=== PATIENT | female | born 1980 | race Caucasian/White ===

== ENCOUNTER 2019-08-07 10:11 | Emergency (ER) | payer SELFPAY ==
[~2019-08-07] VITALS: Ht 157.5 cm; Wt 63.5 kg
--- NOTE | 2019-08-07 10:20 | NUR ---
Patient arrived at unit ambulatory. with c/o back and chest rash x 4 months, no sob, itching and pain r leg pain. will continue to monitor accordingly
[2019-08-07 10:43] VITALS: BP 112/86
--- NOTE | 2019-08-07 11:20 | NUR ---
Patient given written and verbal discharge instructions. Patient verbalizes understanding of instructions. Patient is ambulatory with steady gait. Refuses offer of [facility] placement. Patient given list of available shelters in surrounding area.
--- NOTE | 2019-08-07 12:25 | NUR ---
Social work consult requested by ER. Pt no longer in ER. SW unable to conduct social service assessment.
== END 2019-08-07 11:21 | disposition home or self-care (01) ==
LOC: ER 10:17
DX: R21 Rash and other nonspecific skin eruption (principal); F19.10 Other psychoactive substance abuse, uncomplicated; F12.10 Cannabis abuse, uncomplicated

== ENCOUNTER 2019-08-22 10:32 | Emergency (ER) | payer SELFPAY ==
[~2019-08-22] VITALS: Ht 157.5 cm; Wt 63.5 kg
[2019-08-22] MEDS ORDERED: ONDANSETRON 4 MG TAB.RAPDIS ONE (10:59)
[2019-08-22] MEDS ORDERED: ONDANSETRON 4 MG TAB.RAPDIS PO ONE (11:00)
--- NOTE | 2019-08-22 11:00 | NUR ---
patient came in to the ER c/o cough and vomiting. Breathing evenly and unlabored. connected to the monitor and pulse ox. kept comfortable, will continue to monitor accordingly.
[2019-08-22 11:55] VITALS: BP 115/66
--- NOTE | 2019-08-22 11:55 | NUR ---
Patient discharged to home in stable condition. Written and verbal after care instructions given. Patient verbalizes understanding of instruction.
== END 2019-08-22 11:55 | disposition home or self-care (01) ==
LOC: ER 10:32
DX: B34.9 Viral infection, unspecified (principal); F17.200 Nicotine dependence, unspecified, uncomplicated; F12.10 Cannabis abuse, uncomplicated; Z59.0 Homelessness; Z88.2 Allergy status to sulfonamides
CPT/HCPCS: 71045; 87804 ×2; 99284; Q0162

== ENCOUNTER 2019-09-09 23:36 | Emergency (ER) | payer SELFPAY ==
[~2019-09-09] VITALS: Ht 157.5 cm; Wt 63.5 kg
--- NOTE | 2019-09-09 23:56 | NUR ---
NICK NOTIFIED. INCIDENT REPORT #[id number].
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
--- NOTE | 2019-09-10 00:30 | NUR ---
PATIENT REFUSING TO FILE POLICE REPORT AT THIS TIME. ER MD AWARE.
[2019-09-10] MEDS ORDERED: ACETAMINOPHEN ES 500 MG TABLET ONE (01:16)
[2019-09-10] MEDS ORDERED: IBUPROFEN 600 MG TABLET PO ONE (01:19)
--- NOTE | 2019-09-10 01:27 | NUR ---
Verónica correa in [facility] - 09/10/19 at 0128 by DANIELLE Patient discharged to home in stable condition. Written and verbal after care instructions given. Patient verbalizes understanding of instruction.
[2019-09-10 01:28] VITALS: BP 117/67
--- NOTE | 2019-09-10 01:28 | NUR ---
Patient given written and verbal discharge instructions. Patient verbalizes understanding of instructions. Patient is ambulatory with steady gait. Refuses offer of [facility] placement. Patient given list of available shelters in surrounding area.
[2019-09-10] MEDS ORDERED: ACETAMINOPHEN 325 MG TABLET PO ONE (01:30)
== END 2019-09-10 01:29 | disposition home or self-care (01) ==
LOC: ER 23:37
DX: S00.83XA Contusion of other part of head, initial encounter (principal); F10.129 Alcohol abuse with intoxication, unspecified; R56.9 Unspecified convulsions; F17.200 Nicotine dependence, unspecified, uncomplicated; F12.10 Cannabis abuse, uncomplicated; Y90.9 Presence of alcohol in blood, level not specified; Z88.2 Allergy status to sulfonamides; Y04.8XXA Assault by other bodily force, initial encounter; Y93.89 Activity, other specified; Y92.89 Other specified places as the place of occurrence of the external cause; Y99.8 Other external cause status
CPT/HCPCS: 70450-TC; 70486-TC

== ENCOUNTER 2020-02-08 18:11 | Emergency (ER) | payer SELFPAY ==
[~2020-02-08] VITALS: Ht 157.5 cm; Wt 61.2 kg
[2020-02-08 18:18] VITALS: BP 123/65
--- NOTE | 2020-02-08 18:30 | NUR ---
SEEN AND EXAMINED BY .
[2020-02-08] MEDS ORDERED: LIDOCAINE /MPF 1% VIAL 5 ML VIAL ONE (18:32)
[2020-02-08] MEDS: LIDOCAINE 1% INJ 50 ML MDV IJ ONE (18:32)
--- NOTE | 2020-02-08 19:00 | NUR ---
SUTURING DONE BY .
--- NOTE | 2020-02-08 19:09 | NUR ---
Patient given written and verbal discharge instructions. Patient verbalizes understanding of instructions. Patient is ambulatory with steady gait. Refuses offer of assisted placement. Patient given list of available shelters in surrounding area.
== END 2020-02-08 19:11 | disposition home or self-care (01) ==
LOC: ER 18:11
DX: S01.511A Laceration without foreign body of lip, initial encounter (principal); R56.9 Unspecified convulsions; Z88.2 Allergy status to sulfonamides; Z59.0 Homelessness; W26.8XXA Contact with other sharp object(s), not elsewhere classified, initial encounter; Y93.89 Activity, other specified; Y92.89 Other specified places as the place of occurrence of the external cause; Y99.8 Other external cause status
CPT/HCPCS: 12013; 99282; J3490

== ENCOUNTER 2020-04-02 16:46 | Emergency (ER) | payer SELFPAY ==
[~2020-04-02] VITALS: Ht 157.5 cm; Wt 61.2 kg
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
--- NOTE | 2020-04-02 16:57 | NUR ---
DR WILLIAM AT BEDSIDE FOR EVAL.
--- NOTE | 2020-04-02 17:00 | NUR ---
MACHINE FORMER AT BEDSIDE FOR BLOOD DRAW.
[2020-04-02 17:12] LABS: BASOPHILS # (AUTO) 0.1 /CMM (0.0-0.2); EOSINOPHILS % (AUTO) 2.7 % (0.0-6.0); HEMATOCRIT 38 % (33-45); HEMOGLOBIN 12.8 g/dL (11.5-14.8); LYMPHOCYTES # (AUTO) 2.6 /CMM (0.8-4.8); LYMPHOCYTES % (AUTO) 38.1 % (20.0-44.0); MEAN CORPUSCULAR HGB CONC 33 g/dl (31.0-36.0); MEAN CORPUSCULAR VOLUME 90 fL (82-100); MONOCYTES # (AUTO) 0.6 /CMM (0.1-1.30); MONOCYTES % (AUTO) 8.3 % (2.0-12.0); NEUTROPHILS # (AUTO) 3.4 /CMM (1.8-8.9); NEUTROPHILS % (AUTO) 49.9 % (43.0-81.0); PLATELET COUNT (AUTO) 307 /CMM (150-450); RED BLOOD CELL COUNT(AUTO) 4.27 MIL/uL (4.0-5.2); WHITE BLOOD COUNT (AUTO) 6.8 K/uL (4.3-11.0)
[2020-04-02 17:14] LABS: APPEARANCE,URINE Clear (CLEAR); BILIRUBIN,URINE Negative (NEGATIVE); BLOOD, URINE Moderate Ery/uL (NEGATIVE); COLOR,URINE Yellow (YELLOW); KETONES,URINE Trace (NEGATIVE); LEUKOCYTE ESTERASE ,URINE Negative (NEGATIVE); NITRITE, URINE Negative (NEGATIVE); PROTEIN,URINE Negative (NEGATIVE); UGLUCOSE Negative (NEGATIVE)
[2020-04-02] MEDS ORDERED: IBUPROFEN 600 MG TABLET PO ONE (17:24)
[2020-04-02 17:29] LABS: CALCIUM, SERUM 8.5 mg/dL (8.5-10.1); CARBON DIOXIDE 25 mmol/L (21-32); CHLORIDE 107 mmol/L (98-107); CREATININE 0.7 mg/dL (0.6-1.3); GLUCOSE 87 mg/dL (74-106); POTASSIUM 3.3 mmol/L (3.5-5.1); SODIUM SERUM 142 mmol/L (136-145); UREA NITROGEN, BLOOD 8 mg/dL (7-18)
[2020-04-02 17:32] LABS: BACTERIA,URINE Moderate /HPF (None Seen); SQUAMOUS EPITHELIAL CELL,UR Many /HPF (None Seen)
[2020-04-02 17:33] LABS: WBC,URINE 0-2 /HPF (0-3)
[2020-04-02] MEDS: IBUPROFEN 600 MG TABLET PO ONE (17:34)
[2020-04-02 17:35] LABS: ALANINE AMINOTRANSFERASE 68 U/L (12-78); ALBUMIN 3.3 g/dL (3.4-5.0); ALCOHOL, BLOOD < 3 mg/dL (0-0); ALKALINE PHOSPHATASE 59 U/L (46-116); ASPARTATE AMINOTRANSFERASE 32 U/L (15-37); BILIRUBIN,DIRECT 0.1 mg/dL (0.0-0.2); BILIRUBIN,TOTAL 0.2 mg/dL (0.2-1.0); TOTAL PROTEIN, SERUM 7.2 g/dL (6.4-8.2)
[2020-04-02 17:38] LABS: ACETAMINOPHEN 0 ug/ml (10-30); SALICYLATE 2.5 mg/dL (2.8-20.0)
[2020-04-02] MEDS ORDERED: POTASSIUM CHLORIDE 20 MEQ TAB.PRT.SR PO ONE (19:04)
[2020-04-02] MEDS: POTASSIUM CHLORIDE 20 MEQ TAB.PRT.SR PO ONE (19:06)
--- NOTE | 2020-04-02 19:49 | NUR ---
PT ASLEEP, NO ACUTE DISTRESS NOTED, RESP EVEN AND UNLABORED. CALL LIG WITHIN REACH. 1:1 SITTER REMAINS AT BEDSIDE FOR PT SAFETY.
--- NOTE | 2020-04-02 22:35 | NUR ---
PT AWAKE, AMBULATED TO THE RESTROOM, NO ACUTE DISTRESS NOTED, RESP EVEN AND UNLABORED. PT DENIES PAIN OR DISCOMFORT AT THIS TIME. 1:1 SITTER AT BEDSIDE.
--- NOTE | 2020-04-03 00:49 | NUR ---
PT RESTING IN BED QUIETLY, EYES CLOSED, EASILY AROUSABLE. NO ACUTE DISTRESS NOTED, RESP EVEN AND UNLABORED. CALL LIGHT WITHIN REACH. WILL CONTINUE TO MONITOR PT CLOSELY. 1:1 SITTER REMAINS AT BEDSIDE.
--- NOTE | 2020-04-03 04:32 | NUR ---
CALLED [facility] FOR EVALUATION
--- NOTE | 2020-04-03 07:29 | NUR ---
PT RESTING COMFORTABLY IN BED. VITAL SIGNS STABLE. SITTER AT BEDSIDE.
--- NOTE | 2020-04-03 09:22 | NUR ---
CALLED PSYCH CLINICIAN MELY, LEFT A VOICEMAIL.
--- NOTE | 2020-04-03 09:42 | NUR ---
PATIENT IN BED, ASLEEP, EASILY AROUSABLE BY VOICE. HOOKED TO MONITOR, VSS. SITTER AT BEDSIDE FOR SAFETY. WILL CONTINUE TO MONITOR ACCORDINGLY
--- NOTE | 2020-04-03 10:42 | NUR ---
BREAKFAST TRAY PROVIDED, TOLERATING PO WELL
--- NOTE | 2020-04-03 14:19 | NUR ---
LUNCH TRAY PROVIDED, TOLERATING PO WELL
--- NOTE | 2020-04-03 15:44 | NUR ---
Galley Boy met with the patient and Izzy will evaluate the patient for next steps. Galley Boy to remain available for additional needs.
--- NOTE | 2020-04-03 16:54 | NUR ---
PATIENT IN BED, ASLEEP, EASILY AROUSABLE BY VOICE. HOOKED TO MONITOR, VSS. SITTER AT BEDSIDE FOR SAFETY. WILL CONTINUE TO MONITOR ACCORDINGLY
--- NOTE | 2020-04-03 17:38 | NUR ---
Jewel Stripper contacted Thang at [facility]. Patient was granted presumptive medical and [facility], social media marketing manager notified Mack.
--- NOTE | 2020-04-03 18:22 | NUR ---
PATIENT IN BED, ASLEEP, EASILY AROUSABLE BY VOICE. HOOKED TO MONITOR, VSS. SITTER AT BEDSIDE FOR SAFETY. WILL CONTINUE TO MONITOR ACCORDINGLY
--- NOTE | 2020-04-03 20:32 | NUR ---
PT ACCEPTED TO [facility] ACCE[facility]ING MD: DR. BERTARND/DR. HARRINGTON NUMBER FOR REPORT: [phone] UNIT 2
--- NOTE | 2020-04-03 20:43 | NUR ---
[facility] ETA 0000 HOURS
--- NOTE | 2020-04-03 22:18 | NUR ---
REPORT GIVEN TO FAHAD PERRY FROM [facility] FOR [place]
[2020-04-04] VITALS: BP 103/62
--- NOTE | 2020-04-04 | NUR ---
REPORT GIVEN TO [facility] FOR TRANSPORTATION [place]
== END 2020-04-04 ==
LOC: ER 16:52
DX: R45.851 Suicidal ideations (principal); Z91.14 Patient's other noncompliance with medication regimen; H60.93 Unspecified otitis externa, bilateral; E87.6 Hypokalemia; F32.9 Major depressive disorder, single episode, unspecified; G40.909 Epilepsy, unspecified, not intractable, without status epilepticus; M32.9 Systemic lupus erythematosus, unspecified; F41.9 Anxiety disorder, unspecified; F15.90 Other stimulant use, unspecified, uncomplicated; J06.9 Acute upper respiratory infection, unspecified; Z20.828 Contact with and (suspected) exposure to other viral communicable diseases
CPT/HCPCS: 36415; 80048; 80076; 80305; 80307; 80329; 81001; 84703; 85025; 87070; 87086; 87426; 87880; 99285; C9803; G0480; 81000-TC; 86403-TC